=== PATIENT | female | born 2000 | race Caucasian/White ===

== ENCOUNTER 2025-08-23 17:24 | Emergency (ER) | payer MEDICAID ==
[~2025-08-23] VITALS: Ht 167.6 cm; Wt 91.0 kg
[2025-08-23 17:30] VITALS: O2SAT 99
[2025-08-23 17:37] VITALS: BP 144/79; PULSE 79; RESP 18; TEMP 36.7; O2SAT 99
== END 2025-08-23 19:08 | disposition left against medical advice (07) ==
LOC: ER 17:24
DX: R51.9 Headache, unspecified (principal); E11.9 Type 2 diabetes mellitus without complications; J45.909 Unspecified asthma, uncomplicated
CPT/HCPCS: 99281